=== PATIENT | female | born 1985 | race Hispanic/Latino ===

== ENCOUNTER 2017-09-25 11:04 | Emergency (ER) | payer OTHER ==
[2017-09-25 11:12] VITALS: BMI 21.0
[2017-09-25 11:15] VITALS: O2SAT 100
[2017-09-25] MEDS ORDERED: Sodium Chloride 0.9% 1,000 ML IV STA (11:28)
--- NOTE | 2017-09-25 11:51 | ED PDOC ---
HPI: Abdomen Time Seen by Provider: 09/25/17 11:20 Chief Complaint (Nursing): Abdominal Pain Chief Complaint (Provider): Abd pain History Per: Patient History/Exam Limitations: no limitations Onset/Duration Of Symptoms: Days (this morning at work) Outside of [place] travel?: No Current Symptoms Are (Timing): Still Present Additional Complaint(s): Pt. with RLQ pain and nausea, vomit 2 episodes, nonbloody. No back pain, dysuria, weakness, headaches, dizziness, chest pain, dyspnea. Went to urgent care and sent to the ED. Pt. denies any new food or drinks. Pain is constant. No travel. Past Medical History Reviewed: Nursing Documentation, Vital Signs Vital Signs: Last Vital Signs Temp 97.3 F L 09/25/17 11:13 Pulse 51 L 09/25/17 11:12 Resp 17 09/25/17 11:12 BP 91/50 L 09/25/17 11:12 Pulse Ox 100 09/25/17 11:51 - Medical History PMH: No Chronic Diseases - Surgical History Surgical History: No Surg Hx - Family History Family History: States: Unknown Family Hx - Living Arrangements Living Arrangements: With Family - Social History Alcohol: None Drugs: Denies - Allergies Allergies/Adverse Reactions: Allergies Allergy/AdvReac Type Severity Reaction Status Date / Time No Known Allergies Allergy Verified 09/25/17 11:12 Review of Systems ROS Statement: Except As Marked, All Systems Reviewed And Found Negative Gastrointestinal: Positive for: Nausea, Vomiting, Abdominal Pain Physical Exam - Reviewed Nursing Documentation Reviewed: Yes Vital Signs Reviewed: Yes - Physical Exam Appears: Positive for: Non-toxic, No Acute Distress Head Exam: Positive for: ATRAUMATIC, NORMAL INSPECTION, NORMOCEPHALIC Skin: Positive for: Normal Color, Warm, DRY Eye Exam: Positive for: EOMI, Normal appearance, PERRL ENT: Positive for: Normal ENT Inspection Neck: Positive for: Normal, Painless ROM Cardiovascular/Chest: Positive for: Regular Rate, Rhythm Respiratory: Positive for: CNT, Normal Breath Sounds Gastrointestinal/Abdominal: Positive for: Bowel Sounds, Soft, Tenderness (RLQ) Back: Positive for: Normal Inspection. Negative for: L CVA Tenderness, R CVA Tenderness Extremity: Positive for: Normal ROM. Negative for: Tenderness, Pedal Edema Neurologic/Psych: Positive for: Alert, Oriented - Laboratory Results Result Diagrams: 09/25/17 11:46 09/25/17 11:46 Urine POC: Negative Urine dip results: Negative for: Leukocyte Esterase, Nitrate - ECG O2 Sat by Pulse Oximetry: 100 - Progress ED Course And Treament: 1505: Dr. Cárdenas to take over care. Fu on CT. Disposition - Clinical Impression Clinical Impression: Abdominal pain - Patient ED Disposition Is Patient to be Admitted: Transfer of Care - Disposition Disposition: Transfer of Care Disposition Time: 15:05 Condition: STABLE Patient Signed Over To: Iris Cárdenas
[2017-09-25 11:55] LABS: BASO % 0.1 % (0.0-2.0); EOS # 0.1 K/uL (0.0-0.7); EOS % 0.4 % (0.0-4.0); HEMATOCRIT 40.4 % (34.0-47.0); LYMPH # 0.6 K/uL (1.0-4.3); LYMPH % 4.9 % (20.0-40.0); MEAN CELL VOLUME 91.2 fl (81.0-99.0); MEAN CORPUSCULAR HEMOGLOBIN 30.1 pg (27.0-31.0); MEAN CORPUSCULAR HGB CONC 33.1 g/dL (33.0-37.0); MEAN PLATELET VOLUME 7.7 fl (7.2-11.7); MONO # 0.7 K/uL (0.0-0.8); MONO % 5.3 % (0.0-10.0); NEUT % 89.3 % (50.0-75.0); NRBC % 0.2 % (0.0-0.0); PLATELET COUNT 261 K/uL (130-400); RED CELL DISTRIBUTION WIDTH 13.6 % (11.5-14.5); WHITE BLOOD COUNT 12.4 K/uL (4.8-10.8)
[2017-09-25 12:03] LABS: POTASSIUM 4.4 MMOL/L (3.6-5.0)
[2017-09-25 12:14] LABS: BLOOD UREA NITROGEN 9 mg/dl (7-17); CARBON DIOXIDE 22 mmol/L (22-30); CHLORIDE 104 mmol/L (98-107); GFR AFRICAN-AMERICAN > 60; GLUCOSE,RANDOM 117 mg/dL (65-105); SODIUM 138 mmol/l (132-148); TOTAL PROTEIN 7.4 G/DL (6.3-8.2)
[2017-09-25 12:15] LABS: ALB/GLOB RATIO 1.6 (1.0-2.1); ALKALINE PHOSPHATASE 41 U/L (38-126); ALT/SGPT 26 U/L (9-52); AST/SGOT 30 U/L (14-36); BILIRUBIN,TOTAL 0.4 mg/dl (0.2-1.3)
[2017-09-25 12:21] LABS: EOSINOPHIL 1 % (0-7); NEUTROPHIL 91 % (42-75); TOTAL CELLS COUNTED 100
[2017-09-25] MEDS ORDERED: Iohexol 240 (50 ml) PO ONE (13:38)
--- NOTE | 2017-09-25 14:26 | US ---
HISTORY: r/o torsion; RLQ pain Menstrual status: LMP 09/25/2017. Cycles are regular. COMPARISON: None available. TECHNIQUE: Transvaginal only. Real -time technique with 2D, duplex and color Doppler FINDINGS: UTERUS: Measures 3.4 x 4.4 x 6.7 cm. Normal in size and appearance. No fibroid or other mass lesion seen. ENDOMETRIUM: Measures 3.3 mm in diameter. No ultrasound findings to suggest gestational sac, fluid, debris, mass or polyp or other pathologic process within the endometrium. CERVIX: No cervical abnormality identified. RIGHT OVARY: Measures 1.5 x 1.9 x 2 cm. No solid mass. Normal flow. Multiple subcentimeter follicles. LEFT OVARY: Measures 1.8 x 3 x 3.3 cm. No solid mass. Normal flow. FREE FLUID: No significant free fluid noted. OTHER FINDINGS: None. IMPRESSION: No acute findings related to/accounting for the clinical presentation. Stop
--- NOTE | 2017-09-25 15:10 | ED PDOC ---
- Laboratory Results Result Diagrams: 09/25/17 11:46 09/25/17 11:46 Urine POC: Negative - ECG O2 Sat by Pulse Oximetry: 100 (RA) Pulse Ox Interpretation: Normal - Progress Re-evaluation Time: 17:46 Condition: Re-examined, Improved Medical Decision Making Medical Decision Making: Time: 15:00 Patient is signed out to me by Dr. Marquis Graham, pending CT and reevaluation. Time: 1703 --CT ABD/pelvis FINDINGS: LOWER THORAX: Unremarkable. LIVER: There is a tiny lucency seen at the right lobe liver superolaterally, too small to characterize. Remainder liver appears unremarkable. GALLBLADDER AND BILE DUCTS: Unremarkable. PANCREAS: Unremarkable. No gross lesion or ductal dilatation. SPLEEN: Unremarkable. ADRENALS: Unremarkable. No mass. KIDNEYS AND URETERS: Unremarkable. No hydronephrosis. No solid mass. VASCULATURE: Unremarkable. No aortic aneurysm. BOWEL: Borderline thickening of proximal to mid descending colon may indicate limited segmental colitis. The remainder of the large bowel appears unremarkable. Opacified small bowel loops appear unremarkable as well. No obstruction. No gross mural thickening. APPENDIX: Normal appendix. PERITONEUM: Minimal fluid is seen in the pelvis from indeterminate etiology. No suspicious adnexal findings are identified bilaterally. There is no free intraperitoneal gas. LYMPH NODES: Unremarkable. No enlarged lymph nodes. BLADDER: Mild to mildly distended with limited evaluation of the wall due lack of full distention. No nodular changes are seen or radiodense urolithiasis. REPRODUCTIVE: Unremarkable. BONES: No acute fracture. OTHER FINDINGS: None. IMPRESSION: There is borderline thickening of the proximal descending colon and limited segmental colitis is not excluded. Clinically correlate. Trace fluid is seen in the pelvis of uncertain origin. Consider potential infectious or inflammatory causes though neoplasm and ischemia not completely excluded. Scribe Attestation: Documented by Debbie Carrion, acting as a scribe for Iris Cárdenas MD Provider Scribe Attestation: All medical record entries made by the Scribe were at my direction and personally dictated by me. I have reviewed the chart and agree that the record accurately reflects my personal performance of the history, physical exam, medical decision making, and the department course for this patient. I have also personally directed, reviewed, and agree with the discharge instructions and disposition. Disposition Doctor Will See Patient In The: Office Counseled Patient/Family Regarding: Studies Performed, Diagnosis, Need For Followup - Clinical Impression Clinical Impression: Abdominal pain, Menstrual pain - POA Present On Arrival: None - Disposition Referrals: [facility] [Outside] Disposition: Routine/Home Disposition Time: 17:46 Condition: GOOD Additional Instructions: Take advil for pain. Follow up with your PCP in 2-3 days. Instructions: Abdominal Pain (ED)
[2017-09-25] MEDS ORDERED: Sodium Chloride 0.9% 50 ML IV ONE (15:57)
[2017-09-25] MEDS ORDERED: Iohexol 300 100 ML IJ ONE (15:57)
--- NOTE | 2017-09-25 17:05 | CT ---
PROCEDURE: CT Abdomen and Pelvis with contrast HISTORY: abd pain COMPARISON: None. TECHNIQUE: Following the intravenous administration of iodinated contrast material, a CT examination of the abdomen and pelvis performed from the domes of the diaphragms to the symphysis pubis with reformatted datasets provided not only axial but also sagittal and coronal planes. Oral contrast was not administered as per referring physician request. Contrast dose: Omnipaque 300, 90 cc. Radiation dose: Total exam DLP = 284.71 mGy-cm. This CT exam was performed using one or more of the following dose reduction techniques: Automated exposure control, adjustment of the mA and/or kV according to patient size, and/or use of iterative reconstruction technique. FINDINGS: LOWER THORAX: Unremarkable. LIVER: There is a tiny lucency seen at the right lobe liver superolaterally, too small to characterize. Remainder liver appears unremarkable. GALLBLADDER AND BILE DUCTS: Unremarkable. PANCREAS: Unremarkable. No gross lesion or ductal dilatation. SPLEEN: Unremarkable. ADRENALS: Unremarkable. No mass. KIDNEYS AND URETERS: Unremarkable. No hydronephrosis. No solid mass. VASCULATURE: Unremarkable. No aortic aneurysm. BOWEL: Borderline thickening of proximal to mid descending colon may indicate limited segmental colitis. The remainder of the large bowel appears unremarkable. Opacified small bowel loops appear unremarkable as well. No obstruction. No gross mural thickening. APPENDIX: Normal appendix. PERITONEUM: Minimal fluid is seen in the pelvis from indeterminate etiology. No suspicious adnexal findings are identified bilaterally. There is no free intraperitoneal gas. LYMPH NODES: Unremarkable. No enlarged lymph nodes. BLADDER: Mild to mildly distended with limited evaluation of the wall due lack of full distention. No nodular changes are seen or radiodense urolithiasis. REPRODUCTIVE: Unremarkable. BONES: No acute fracture. OTHER FINDINGS: None. IMPRESSION: There is borderline thickening of the proximal descending colon and limited segmental colitis is not excluded. Clinically correlate. Trace fluid is seen in the pelvis of uncertain origin. Consider potential infectious or inflammatory causes though neoplasm and ischemia not completely excluded.
[2017-09-25 17:57] VITALS: BP 126/77; PULSE 73; RESP 16; TEMP 98.2
== END 2017-09-25 17:55 | disposition home or self-care (01) ==
LOC: H.ER 11:04
DX: R10.31 Right lower quadrant pain (principal); N94.6 Dysmenorrhea, unspecified
CPT/HCPCS: 74177; 76830; 80053; 81025; 85025; 96361; 96374; 96375; 99285; J1885; J2405; J7040; Q9966; Q9967